=== PATIENT | female | born 1945 | race Caucasian/White ===

== ENCOUNTER → 2016-07-12 | Outpatient (CLI) | payer OTHER | LOC: MMPC 09:00 | PROVIDERS: ATTEND Nurse Practitioner Family | DX: Z01.419 Encounter for gynecological examination (general) (routine) without abnormal findings (principal); N95.2 Postmenopausal atrophic vaginitis | CPT/HCPCS: G0101; G0439; G0463 ==

== ENCOUNTER → 2016-08-16 | Outpatient (CLI) | payer OTHER ==
[2016-08-16 08:59] LABS: CALCIUM 9.4 mg/dL (8.7-10.7)
== END ==
LOC: LAB 08:11
PROVIDERS: ATTEND Internal Medicine
DX: M81.0 Age-related osteoporosis without current pathological fracture (principal)
CPT/HCPCS: 36415; 80048

== ENCOUNTER → 2016-09-03 | Outpatient (CLI) | payer OTHER | LOC: MMPC 11:11 | PROVIDERS: ATTEND Internal Medicine | DX: M81.0 Age-related osteoporosis without current pathological fracture (principal) | CPT/HCPCS: G0463; J0897 ==

== ENCOUNTER → 2016-10-22 | Outpatient (CLI) | payer OTHER ==
--- NOTE | 2016-10-22 16:34 | DI ---
AP PELVIS and RIGHT HIP, 10/22/2016 3:43 PM: Clinical History: Right groin pain. Previous Exam: None at this facility. There is no soft tissue abnormality. The bony structures of the pelvis are normal. 2 views of the rig ht hip are normal. Readin. Normal right hip exam. 2. The AP pelvis view is unremarkable.
== END ==
LOC: MOB RAD 15:44
PROVIDERS: ATTEND Nurse Practitioner
DX: M25.551 Pain in right hip (principal); M25.451 Effusion, right hip
CPT/HCPCS: 73502; 99214; G0463

== ENCOUNTER → 2016-10-30 | Outpatient (CLI) | payer OTHER ==
--- NOTE | 2016-10-30 10:50 | DI ---
MAMMO DIAGNOSTIC B/L,10/30/2016 9:41 AM: Clinical History: Prior left breast cancer. Previous Exam: October 24, 2015 Findings: CC and MLO views of both breasts are obtained, and demonstrate scattered fibroglandular elements. Computer aided diagnostics were applied. There are post surgical changes and post radiation changes with calcifications most consistent with f at necrosis. There is stable architectural distortion. Impression: No mammographic evidence of malignancy. BIRADS: 2: Benign findings Recommendations: Annual screening. Note: Breast examination has been discussed and encouraged, and the patient informed to return if the re is any new palpable abnormality in the interval between screening. Overall imaging assessment: Benign findings.
== END ==
LOC: MAMMO 09:35
PROVIDERS: ATTEND Physician Assistant
DX: Z85.3 Personal history of malignant neoplasm of breast (principal)
CPT/HCPCS: G0204

== ENCOUNTER → 2016-11-13 | Outpatient (CLI) | payer OTHER ==
--- NOTE | 2016-11-13 09:47 | DI ---
MRI LUMBAR SPINE W/O CN,11/13/2016 8:39 AM: Clinical History: Right groin pain Previous Exam: None available. Findings: Multiplanar MR images are obtained through the lumbar spine without contrast. Bony alignment is anato venkata. No fractures are seen. There is marrow edema involving the fourth lumbar vertebral body. The spinal cord descends normally with normal course, caliber and signal characteristics. The conus i s normal at the L1 level. The paraspinal musculature is somewhat atrophic. There is a small subcentimeter cyst involving the left kidney. Individual intervertebral disc spaces: T12/L1: There is disc desiccation, a broad-based disc bulge and a small right lateral recess disc ext rusion contributing to mild right neuroforaminal narrowing. L1/2: There is disc desiccation, annular fissuring and a broad-based disc bulge with some mild facet hypertrophy causing no significant stenosis. L2/3: There is disc desiccation, annular fissuring and a broad-based disc bulge with facet and ligame ntum flavum hypertrophy contributing to mild left neuroforaminal narrowing. L3/4: There is disc desiccation, a near complete loss of intervertebral disc height and some annular fissuring contributing to mild left neural foraminal narrowing. L4/5: There is some disc desiccation, annular fissuring and a broad-based disc bulge with mild facet and ligamentum flavum hypertrophy contributing to no significant central canal nor neural foraminal n arrowing. L5/S1: Disc desiccation, annular fissuring and a small broad-based disc bulge without significant kathia nosis. Impression: 1. Diffuse degenerative changes of the lumbar spine without any significant stenosis. 2. Mild bony edema of the L4 vertebral body.
== END ==
LOC: MRI 08:36
PROVIDERS: ATTEND Nurse Practitioner
DX: R10.31 Right lower quadrant pain (principal); M51.16 Intervertebral disc disorders with radiculopathy, lumbar region; M51.37 Other intervertebral disc degeneration, lumbosacral region; N28.1 Cyst of kidney, acquired
CPT/HCPCS: 72148